=== PATIENT | male | born 1950 | race Caucasian/White ===

== ENCOUNTER → 2016-12-08 | Outpatient (CLI) | payer MEDICAID, OTHER ==
[~2016-12-08] MED LIST: MULTIVITAMIN; RAPAFLO PO; ROSUVASTATIN PO
[2016-12-08 11:58] LABS: ASPARTATE AMINO TRANSFERASE 19 U/L (15-37); BLOOD UREA NITROGEN 8 mg/dL (7-18)
== END | disposition home or self-care (01) ==
LOC: STAR 10:57
PROVIDERS: ATTEND Urology
DX: Z01.818 Encounter for other preprocedural examination (principal); N35.9 Urethral stricture, unspecified
CPT/HCPCS: 36415; 80053; 81003; 87086; 93005

== ENCOUNTER 2016-12-14 06:16 | Day surgery (SDC) | payer MEDICAID, OTHER ==
[~2016-12-14] VITALS: Ht 170.2 cm; Wt 75.0 kg
[2016-12-14] MEDS ORDERED: PROPOFOL 10 MG/ML, 20ML ONE (09:40)
[2016-12-14] MEDS ORDERED: KETOROLAC 30 MG/1 ML ONE (09:40)
[2016-12-14] MEDS ORDERED: CEFAZOLIN 1,000 MG ONE (09:40)
[2016-12-14] MEDS ORDERED: DEXAMETHASONE 4 MG/ML, 1ML ONE (09:40)
[2016-12-14] MEDS ORDERED: ONDANSETRON 2MG/ML, 2ML ONE (09:40)
[2016-12-14] MEDS ORDERED: MIDAZOLAM 1 MG/ML, 2ML ONE (09:41)
[2016-12-14] MEDS ORDERED: FENTANYL PF 100 MCG/2ML ONE (09:41)
[2016-12-14] MEDS ORDERED: ACETAMINOPHEN 650 MG/20.3 ML UDC ONE (10:39)
[2016-12-14] MEDS ORDERED: hydrALAzine 20 MG/ML, 1ML IV PRN (11:00)
[2016-12-14] MEDS ORDERED: LABETALOL 5MG/ML, 20ML IV PRN (11:00)
[2016-12-14] MEDS ORDERED: MEPERIDINE/PF 25MG/0.5ML IVPush PRN (11:00)
[2016-12-14] MEDS ORDERED: METOPROLOL 1 MG/ML, 5ML IV PRN (11:00)
[2016-12-14] MEDS ORDERED: ACETAMINOPHEN 325 MG TABLET PO PRN (11:00)
[2016-12-14] MEDS ORDERED: ALBUTEROL SULFATE 2.5 MG/3 ML NPPB PRN (11:00)
[2016-12-14] MEDS ORDERED: MIDAZOLAM 1 MG/ML, 2ML IV PRN (11:00)
[2016-12-14] MEDS ORDERED: HYDROmorphone 1 MG/ML, 1ML IV PRN (11:00)
[2016-12-14] MEDS ORDERED: PROMETHAZINE 25 MG/ML, 1ML IV PRN (11:00)
[2016-12-14] MEDS ORDERED: OXYcodone 5 MG/5 ML ORAL.SOL UDC PO PRN (11:00)
[2016-12-14] MEDS ORDERED: ONDANSETRON 2MG/ML, 2ML IVPush PRN (11:00)
[2016-12-14] MEDS ORDERED: EPHEDRINE 50 MG/ML, 1ML IVPush PRN (11:00)
[2016-12-14] MEDS ORDERED: FENTANYL PF 100 MCG/2ML IV PRN (11:00)
[2016-12-14] MEDS ORDERED: DIAZEPAM 5 MG/ML, 2ML IVPush PRN (11:00)
[2016-12-14] MEDS ORDERED: HYDROcodone/APAP 7.5-325MG/15ML UDC PO PRN (11:00)
== END 2016-12-14 12:20 ==
LOC: OUT 06:16
PROVIDERS: ATTEND Urology
DX: N35.9 Urethral stricture, unspecified (principal); Z86.73 Personal history of transient ischemic attack (TIA), and cerebral infarction without residual deficits
CPT/HCPCS: 52281; J0690; J1100; J1885; J2250; J2405; J2704; J3010

== ENCOUNTER → 2019-03-09 | Outpatient (CLI) | payer MEDICARE | END | disposition home or self-care (01) | LOC: PETCFH 13:15 | PROVIDERS: ATTEND Radiology Radiation Oncology | DX: C61 Malignant neoplasm of prostate (principal); C85.80 Other specified types of non-Hodgkin lymphoma, unspecified site; N42.89 Other specified disorders of prostate | CPT/HCPCS: 78815; A9588 ==

== ENCOUNTER 2019-03-10 11:30 | Outpatient (CLI) | payer MEDICARE ==
[2019-03-10] MEDS ORDERED: OMNIPAQUE 350 MG/ML, 75ML BOTTLE ONE (12:52)
[2019-03-10] MEDS ORDERED: GADOTERATE 7.5 MMOL/15 ML SYR ONE (14:39)
== END 2019-03-10 23:59 | disposition home or self-care (01) ==
LOC: RAD 11:30
PROVIDERS: ATTEND Family Medicine
DX: M51.17 Intervertebral disc disorders with radiculopathy, lumbosacral region (principal); I70.0 Atherosclerosis of aorta; M47.814 Spondylosis without myelopathy or radiculopathy, thoracic region; K57.30 Diverticulosis of large intestine without perforation or abscess without bleeding; M85.651 Other cyst of bone, right thigh; M48.061 Spinal stenosis, lumbar region without neurogenic claudication; K40.90 Unilateral inguinal hernia, without obstruction or gangrene, not specified as recurrent; M16.12 Unilateral primary osteoarthritis, left hip; M76.00 Gluteal tendinitis, unspecified hip; R05 Cough
CPT/HCPCS: 71260; 72158; 73721; A9575; Q9967

== ENCOUNTER 2019-04-27 06:09 | Day surgery (SDC) | payer MEDICARE ==
[~2019-04-27] VITALS: Ht 170.2 cm; Wt 72.0 kg
[2019-04-27 07:15] VITALS: BP 124/72
[2019-04-27] MEDS ORDERED: SODIUM CHLORIDE 0.9% 1,000 ML IV SCH (07:18)
[2019-04-27] MEDS ORDERED: FENTANYL PF 100 MCG/2ML ONE (08:43)
[2019-04-27] MEDS ORDERED: MIDAZOLAM 1 MG/ML, 5ML ONE (08:43)
[2019-04-27] MEDS ORDERED: FLUMAZENIL 0.1 MG/1 ML, 5ML ONE (08:43)
[2019-04-27] MEDS ORDERED: NALOXONE 1 MG/ML, 2ML ONE (08:43)
== END 2019-04-27 10:20 | disposition home or self-care (01) ==
LOC: OUT 06:09
PROVIDERS: ATTEND Radiology Radiation Oncology
DX: C61 Malignant neoplasm of prostate (principal); C77.2 Secondary and unspecified malignant neoplasm of intra-abdominal lymph nodes; E78.5 Hyperlipidemia, unspecified; F17.210 Nicotine dependence, cigarettes, uncomplicated; Z79.899 Other long term (current) drug therapy
CPT/HCPCS: 49180; 77012; 88305; 99156; 99157; J2250; J3010; J2310

== ENCOUNTER 2019-05-25 12:02 | Outpatient (CLI) | payer MEDICARE | END 2019-05-25 23:59 | disposition home or self-care (01) | LOC: STAR 12:02 | PROVIDERS: ATTEND Family Medicine | DX: Z01.818 Encounter for other preprocedural examination (principal); C61 Malignant neoplasm of prostate | CPT/HCPCS: 93005 ==